=== PATIENT | male | born 1980 ===

== ENCOUNTER 2021-07-18 11:31 | Day surgery (SDC) | payer OTHER ==
[2021-07-18] VITALS (7 sets, daily range): BP systolic 114–134; BP diastolic 72–88; PULSE 59–89; TEMP 96.7–97.2
[~2021-07-18] VITALS: Ht 182.9 cm; Wt 93.6 kg
[2021-07-18] MEDS ORDERED: CIPRO 500MG TA500 MG PO (11:46)
[2021-07-18] MEDS ORDERED: FLAGYL500 MG PO (11:47)
--- NOTE | 2021-07-18 14:05 | NUR ---
Pt was escorted from [facility] via cart by Kalee HOLLAND. Verbal report obtained from Jennifer HOLLAND. Per DR: pt is to wait 2 hours, and maintain clear liquid diet in preparation for procedure tomorrow. Pt was oriented to room and call summers. Apple juice and cold water provided. Pt denies nausea. No vomiting. Denies stomach pain and discomfort. Call summers is within reach on side table.
--- NOTE | 2021-07-18 14:20 | NUR ---
Pt continues to deny nausea. No vomiting. Denies stomach discomfort. Call summers remains within reach. Apple juice and water refilled. Vitals obtained.
--- NOTE | 2021-07-18 14:35 | NUR ---
Vitals obtained. Pt asked RN to call his ride about "issue". RN called his ride Alberto. Then called DR personal phone about discharge time. RN notified the DR about ride issue, and the DR stated if the pt continues to do well and is not experiencing stomach discomfort/pain/nausea, he may be discharged at 1530. RN verbalized understanding and notified the pt and ride about change of time.
--- NOTE | 2021-07-18 14:50 | NUR ---
Vitals obtained. Pt continues to do well. Pt is currently reading in bed.
--- NOTE | 2021-07-18 15:20 | NUR ---
Vitals obtained. IV discontinued. Catheter tip intact. Pressure dressing applied. NO redness or swelling. DC instructions and educational material reviewed with the pt who verbalized understanding and signed the related paperwork. Questions answered. Pt denied needing assistance changing into personal clothes and verbalizd understanding using call summers to notify RN when done.
--- NOTE | 2021-07-18 15:33 | NUR ---
PT dismissed from [facility] via wheelchair by Kalee HOLLAND to the ED entrence and transferred into the care of Neeraj, who is present to drive. Pt has the DC packet in hand.
[2021-07-19] MEDS ORDERED: NORCO 325 MG-51 TAB PO (16:50)
[2021-07-19] MEDS ORDERED: MOTRIN 600600 MG/TAB PO (16:51)
== END 2021-07-18 15:35 | disposition home or self-care (01) ==
LOC: SDCO 11:31
DX: K80.50 Calculus of bile duct without cholangitis or cholecystitis without obstruction (principal); K83.8 Other specified diseases of biliary tract; K80.10 Calculus of gallbladder with chronic cholecystitis without obstruction
CPT/HCPCS: C1769; C2625; J1610; J2704; J7030; Q9967

== ENCOUNTER 2021-07-19 12:24 | Day surgery (SDC) | payer OTHER ==
[~2021-07-19] VITALS: Ht 182.9 cm; Wt 92.7 kg
[~2021-07-19 12:24] MED LIST: CIPRO 500MG TA500 MG PO; FLAGYL500 MG PO
[2021-07-19 13:03] VITALS: BP 125/77; PULSE 60; TEMP 98.1
[2021-07-19] MEDS ORDERED: NORCO 325 MG-51 TAB PO (16:50)
[2021-07-19] MEDS ORDERED: MOTRIN 600600 MG/TAB PO (16:51)
[2021-07-19 19:07] VITALS: BP 148/97; PULSE 64
[2021-07-19 19:30] VITALS: TEMP 99
[2021-07-19 19:37] VITALS: BP 135/80; PULSE 56
[2021-07-19 19:52] VITALS: BP 131/88; PULSE 64
--- NOTE | 2021-07-19 21:11 | NUR ---
REPORT FROM JOSE IN PACU. PATIENT UP TO ROOM 327. ALERT AND ORIENTED. PROVIDED WITH SANDWICH BOX, AND TOLERATED WELL. DRANK 1000 MLS OF WATER AND TOLERATED WELL. DENYING PAIN. DENYING NAUSEA. AMBULATED STANDBY ASSIST TO BATHROOM AND VOIDED CLEAR YELLOW URINE WITHOUT ISSUE. IV TO L WRIST DC'D, CATHETER INTACT, BANDAID APPLIED. DC TEACHING COMPLETED. DC PAPERWORK SIGNED. PATIENT ESCORTED OUT VIA WHEELCHAIR TO HOME WITH FAMILY BY NURSING STAFF. DC AT 2039.
== END 2021-07-19 20:40 | disposition home or self-care (01) ==
LOC: SDCO 12:24 → SURG 19:18 → SDCO 20:40
DX: K80.44 Calculus of bile duct with chronic cholecystitis without obstruction (principal); R17 Unspecified jaundice
CPT/HCPCS: OP; J0690; J1100; J1885; J2405; J2704; J3010; J7120; Q9967

== ENCOUNTER 2021-09-02 13:10 | Day surgery (SDC) | payer OTHER ==
[~2021-09-02] VITALS: Ht 182.9 cm; Wt 92.7 kg
[~2021-09-02 13:10] MED LIST changes: +MOTRIN 600600 MG/TAB PO; +NORCO 325 MG-51 TAB PO
[2021-09-02 13:55] VITALS: BP 116/81; PULSE 68; TEMP 97.6
--- NOTE | 2021-09-02 13:56 | NUR ---
Initial visit; Patient welcomed prayer prior to his procedure and thanked Broth Setter for looking in on him.
[2021-09-02 16:15] VITALS: BP 121/86; PULSE 69
--- NOTE | 2021-09-02 16:20 | NUR ---
Pt back from ERCP procedure. He was settled into [facility] by Jennifer HOLLAND. Pt resting comfortably in recliner without complaint at this time. Pt has been given ice water to drink and is tolerating with no problem. Pt denies any severe pain or nausea, although states does feel "something" in ruq, but it is not severe.
[2021-09-02 16:30] VITALS: BP 128/97; PULSE 57
--- NOTE | 2021-09-02 16:34 | NUR ---
Pt rang call light reporting pain across upper abd, difficult to quantify or qualify, however we plan to make pt NPO, apply warm blanket to upper abd and monitor. Tatiana HOLLAND at to evaluate patient.
--- NOTE | 2021-09-02 16:42 | NUR ---
1634 - PT states epigastric pain. PT unable to use 0 to 10 scale at first, then is able to rate pain 7/10 and is unable to describe the pain. Warm blankets applied to abdomen. PT assisted with repositioning. Call summers remains within reach. 1642 PT states experiencing nausea. Emisis bag provided. PT has belched twice and reports sensation has decreased; however he states epigastric pain remains steady. PT has not vomited.
[2021-09-02 16:45] VITALS: BP 90/59; PULSE 43
--- NOTE | 2021-09-02 16:50 | NUR ---
RN notified DR of PT rates of pain, as well as nursing interventions to help reduce discomfort. DR verbalized understanding. No new orders recieved. Will continues to monitor PT.
[2021-09-02 17:00] VITALS: BP 116/83; PULSE 60; TEMP 97
--- NOTE | 2021-09-02 17:00 | NUR ---
New orders recieved; however PT refused pain medications due to decreasing pain from 7/10 to 3/10; getting better with belching and passing gas. Call summers remains within reach.
--- NOTE | 2021-09-02 17:16 | NUR ---
Pt reports pain has waxed and waned, and is now a bit better. Pt's vitals have normalized, and pt is up with steady gait at this time to ambulate in brian and to bathroom.
--- NOTE | 2021-09-02 17:30 | NUR ---
DC instructions and edcational material reviewed with the PT who verbalized understanding and signed the related paperwork. Questions answered to PT satisfaction. IV discontinued. Catheter tip intact. Pressure bandage applied. NO redness or swelling noted. PT changed into his personal clothes without difficulty; then was dismissed from endo via wheelchair to the PT entrence by Kalee HOLLAND. PT has DC packet in hand and his personal belongings.
== END 2021-09-02 17:45 | disposition home or self-care (01) ==
LOC: SDCO 13:10
DX: K80.50 Calculus of bile duct without cholangitis or cholecystitis without obstruction (principal); R93.2 Abnormal findings on diagnostic imaging of liver and biliary tract; K31.89 Other diseases of stomach and duodenum; Z28.310 Unvaccinated for COVID-19; Z28.9 Immunization not carried out for unspecified reason
CPT/HCPCS: C1769; J2704; J3010; Q9967